=== PATIENT | male | born 1955 | race Caucasian/White ===

== ENCOUNTER → 2023-11-16 15:22 | Outpatient (REF) | payer MEDICARE, SELFPAY ==
[2023-11-16 14:50] LABS: % Basophils 0.5 % (0-2); % Eosinophils 1.5 % (0-6); % Immature Granulocytes 0.2 % (0-0.5); % Monocytes 14.9 % (1.7-9.3); % Neutrophils 62.9 % (42.2-75.2); Absolute Eosinophils 0.1 10^3/uL (0-0.7); Absolute Lymphocytes 1.2 10^3/uL (1.2-3.4); Absolute Monocytes 0.9 10^3/uL (0.1-0.6); Absolute Neutrophils 3.8 10^3/uL (1.4-6.5); Hematocrit 39.4 % (39.0-52.0); Hemoglobin 13.4 g/dL (13.0-18.0); Mean Corpuscular Hgb 29.6 pg (27.0-31.0); Mean Corpuscular Volume 87.2 fL (80.0-94.0); Mean Platelet Volume 10.3 fL (7.4-10.4); Nucleated Red Blood Cells % 0 % (-); Platelet Count 247 10^3/uL (130-400); Red Blood Cell Count 4.52 10^6/uL (4.70-6.10); Red Cell Dist. Width 16.2 % (11.5-14.5)
== END ==
LOC: OIDL 15:22
PROVIDERS: ATTENDING PHYSICIAN Internal Medicine Hematology & Oncology
DX: D50.0 Iron deficiency anemia secondary to blood loss (chronic) (principal)
CPT/HCPCS: 85025

== ENCOUNTER 2023-11-25 06:26 | Day surgery (SDC) | payer MEDICARE, SELFPAY ==
[2023-11-12 08:58] LABS: Hematocrit 40.3 % (39.0-52.0); Hemoglobin 13.2 g/dL (13.0-18.0); Mean Corp Hgb Conc. 32.8 g/dL (33.0-37.0); Mean Corpuscular Hgb 29.7 pg (27.0-31.0); Mean Corpuscular Volume 90.8 fL (80.0-94.0); Mean Platelet Volume 10.4 fL (7.4-10.4); Platelet Count 223 10^3/uL (130-400); Red Blood Cell Count 4.44 10^6/uL (4.70-6.10); Red Cell Dist. Width 16.7 % (11.5-14.5); White Blood Cell Count 5.5 10^3/uL (4.8-10.8)
[2023-11-12 09:36] LABS: Blood Urea Nitrogen 17 mg/dl (9-20); Calcium 8.8 mg/dl (8.4-10.2); Carbon Dioxide 26 mmol/L (22-30); Chloride 106 mmol/L (98-107); Glucose 86 mg/dl (70-99); Potassium 4.4 mmol/L (3.5-5.1); Sodium 136 mmol/L (135-145); eGFR > 60.00
[2023-11-12 14:03] VITALS: BMI 34.3
[2023-11-25] VITALS (13 sets, daily range): BP systolic 125–152; BP diastolic 61–98; BMI 34.3
[2023-11-25] MEDS: TYLENOL 1000 MG PO (09:33)
[2023-11-25] MEDS: NORMOSOL-R 1000 IV ×3 (09:33→15:38)
--- NOTE | 2023-11-25 14:22 | W.IMMPOSTOP ---
Addendum entered and electronically signed by John Romero MD 12/09/23 14:47:
[facility]#[id number]
Original Note:
Surgical Immed Post Op Note
-
Primary Surgeon: Nick
Assisting Surgeon: HANNA [email or web address]
Pre-op Diagnosis: Paraesophageal hernia
Post-op Diagnosis: Paraesophageal hernia
Procedure Performed: Laparoscopic paraesophageal hernia repair with Toupet fundoplication and intra-operative EGD
Anesthesia Type: General
Specimen / Cultures: None
Estimated Blood Loss: 7 cc
Complications: None
Operative Findings:
1. Large type III PEH with 50% of stomach in chest and large posterior fat pad
2. > 3 cm esophageal mobilization, bl vagi identified, no pleural violation
3. Posterior crural closure with 0 silk x6
4. Loose floppy 2 cm Toupet fundoplication over 56 Fr Bougie
5. Post-repair EGD with no mucosal injury, intact wrap, no significant narrowing
[2023-11-25] MEDS: OFIRMEV 100 IV ×2 (15:39→20:20)
--- NOTE | 2023-11-25 16:05 | SUR.PHASEI ---
Noted pt to have subq crepitis of upper chest and left periorbital edema. Pt denies any complaints. Dr Mack in to see pt to evaluate and no further intevention needed.
[2023-11-26] MEDS: NORMOSOL-R 1000 IV ×2 (01:05→08:36)
[2023-11-26] MEDS: OFIRMEV 100 IV ×2 (03:02→08:36)
[2023-11-26 03:10] VITALS: BP 133/72
[2023-11-26 05:14] LABS: Hematocrit 37.8 % (39.0-52.0); Hemoglobin 12.4 g/dL (13.0-18.0); Mean Corp Hgb Conc. 32.8 g/dL (33.0-37.0); Mean Corpuscular Hgb 29.7 pg (27.0-31.0); Mean Corpuscular Volume 90.4 fL (80.0-94.0); Mean Platelet Volume 10.2 fL (7.4-10.4); Platelet Count 235 10^3/uL (130-400); Red Blood Cell Count 4.18 10^6/uL (4.70-6.10); Red Cell Dist. Width 15.9 % (11.5-14.5); White Blood Cell Count 10.3 10^3/uL (4.8-10.8)
[2023-11-26 05:33] LABS: Blood Urea Nitrogen 12 mg/dl (9-20); Calcium 8.3 mg/dl (8.4-10.2); Carbon Dioxide 25 mmol/L (22-30); Chloride 106 mmol/L (98-107); Estimated Creatinine Clearance 112 ml/min; Glucose 110 mg/dl (70-99); Potassium 4.3 mmol/L (3.5-5.1); Sodium 135 mmol/L (135-145); eGFR > 60.00
[2023-11-26 07:10] VITALS: BP 139/79
--- NOTE | 2023-11-26 07:35 | W.PN.GS2 ---
Addendum entered and electronically signed by John Romero MD 11/26/23 16:42:
Patient tolerated diet without dysphagia or nausea. Weaned off O2. Pain well controlled. Cleared for DC.
Original Note:
Today's Communication / Plan
-
-- Clears --> fulls --> soft diet throughout the day
-- Pain control: Tylenol, Toradol, Oxycodone, IV Dilaudid for breakthrough
-- DC Bravo
-- Home Lisinopril and Melatonin
-- Possible DC today pending progression
Assessment / Plan
-
Patient is a 68 yo M POD#1 s/p laparoscopic paraesophageal hernia with Toupet fundoplication and EGD
Recovering well. No postoperative concerns.
-- Clears --> fulls --> soft diet throughout the day
-- Pain control: Tylenol, Toradol, Oxycodone, IV Dilaudid for breakthrough
-- DC Bravo
-- Maintain IVF until PO intake adequate
-- Lovenox for DVT, continue to hold Eliquis
-- Home Lisinopril and Melatonin
-- Possible DC today pending progression
Subjective Data
-
Date of Service: November 26, 2023
No complaints. Reports some chest soreness. Denies any nausea or vomiting. Denies shortness of breath. No fevers. No ambulation.
Objective Data
-
Intake and Output
11/25/23 11/26/23 11/27/23
06:59 06:59 06:59
Intake Total 300 / 300
Output Total 2925 / 2925
Balance -2625 / -2625
Intake:
IV fluids (Total) 300 / 300
Normosol 300 / 300
Output:
Urine, Bravo 2925 / 2925
Vital Signs
Temp Pulse Resp BP Pulse Ox
98.2 F 68 16 133/72 99
11/26/23 03:10 11/26/23 03:10 11/26/23 03:10 11/26/23 03:10 11/26/23 03:10
Lab Results
11/26/23 04:38
11/26/23 04:38
Calcium 8.3 mg/dl (8.4-10.2) L 11/26/23 04:38
Physical Exam
-
Gen: NAD
Abd: soft, NT/ND, incisions c/d/i - no erythema, ecchymosis or drainage
[2023-11-26] MEDS: ZESTRIL 10 MG PO (08:35)
[2023-11-26 11:00] VITALS: BP 156/70
--- NOTE | 2023-11-26 11:30 | CM ---
Chart reviewed. Spoke with pt and at bedside
Pt is POD #1 s/p laparoscopic paraesophageal hernia repair
Pt lives with in a 3 story home
Independent, driving
Denies DME in home
Reports has been to Rehab in [place] in past after knee surgery
Denies HH
PCP - Dr Horner at [facility]
Pharm - [facility], [place]
Will have ride at d/c
Anticipate - home no needs will medically stable
[2023-11-26 15:05] VITALS: BP 145/75
== END 2023-11-26 18:33 | disposition home or self-care (01) ==
LOC: SDS 06:26
PROVIDERS: ATTENDING PHYSICIAN Surgery; FAMILY PHYSICIAN Family Medicine
DX: K44.9 Diaphragmatic hernia without obstruction or gangrene (principal); Z79.01 Long term (current) use of anticoagulants
CPT/HCPCS: 43281; 36415; 71046; 80048; 85027; 93005